=== PATIENT | male | born 1995 | race Caucasian/White ===

== ENCOUNTER 2020-08-16 17:23 | Emergency (ER) | payer SELFPAY ==
[2020-08-16] MEDS ORDERED: Pantoprazole 40 MG Tab.CR PO STA (18:07)
[2020-08-16] MEDS ORDERED: Ondansetron 4 MG Tab.DIS PO ONE (18:07)
--- NOTE | 2020-08-16 18:10 | EDM.PDOC ---
ED HPI GENERAL MEDICAL PROBLEM - General Chief Complaint: Gastrointestinal Problem Stated Complaint: VOMITTING BLOOD Time Seen by Provider: 08/16/20 18:01 Source of Information: Reports: Patient, Family, RN Notes Reviewed History Limitations: Reports: No Limitations - History of Present Illness INITIAL COMMENTS - FREE TEXT/NARRATIVE: 24-year-old gentleman presents emergency department a complaint of vomiting blood, he states he had 2 events over the last 2 days initially he had a large amount of blood in his emesis and then that was yesterday and then today he had another bout of emesis only with red streaks. He does feel nauseated he is the only 1 in the house that is sick he says he does have a known history of reflux disease does not take any medications. - Related Data Allergies Allergy/AdvReac Type Severity Reaction Status Date / Time No Known Allergies Allergy Verified 08/16/20 17:51 Home Meds: Home Meds NK [No Known Home Meds] 08/16/20 [History] Past Medical History Respiratory History: Reports: Asthma Gastrointestinal History: Reports: GERD Genitourinary History: Reports: Other (See Below) - Infectious Disease History Infectious Disease History: Reports: Chicken Pox - Past Surgical History Head Surgeries/Procedures: Reports: None Respiratory Surgical History: Reports: None GI Surgical History: Reports: None Male Surgical History: Reports: Circumcision Dermatological Surgical History: Reports: None Social & Family History - Tobacco Use Tobacco Use Status *Q: Never Tobacco User Second Hand Smoke Exposure: No - Caffeine Use Caffeine Use: Reports: None - Recreational Drug Use Recreational Drug Use: No ED ROS GENERAL - Review of Systems Review Of Systems: See Below Constitutional: Reports: No Symptoms HEENT: Reports: No Symptoms Respiratory: Reports: No Symptoms Cardiovascular: Reports: No Symptoms GI/Abdominal: Reports: Hematemesis, Nausea, Vomiting. Denies: Abdominal Pain ED EXAM, GI/ABD - Physical Exam Exam: See Below Exam Limited By: No Limitations General Appearance: Alert, WD/WN, No Apparent Distress Respiratory/Chest: No Respiratory Distress, Lungs Clear, Normal Breath Sounds, N o Accessory Muscle Use, Chest Non-Tender Cardiovascular: Regular Rate, Rhythm, No Murmur GI/Abdominal Exam: Soft, Non-Tender Course - Vital Signs Last Recorded V/S: Last Vital Signs Temp 98.7 F 08/16/20 17:51 Pulse 62 08/16/20 17:51 Resp 16 01/21/21 17:51 BP 117/70 08/16/20 17:51 Pulse Ox 96 08/16/20 17:51 - Orders/Labs/Meds Labs: Laboratory Tests 08/16/20 08/16/20 Range/Units 18:12 18:12 WBC 10.7 (4.5-11.0) K/uL RBC 5.64 (4.30-5.90) M/uL Hgb 16.3 H (12.0-15.0) g/dL Hct 47.5 (40.0-54.0) % MCV 84 (80-98) fL MCH 29 (27-31) pg MCHC 34 (32-36) % Plt Count 307 (150-400) K/uL Neut % (Auto) 68 H (36-66) % Lymph % (Auto) 20 L (24-44) % [place] % (Auto) 11 H (2-6) % Eos % (Auto) 1 L (2-4) % Baso % (Auto) 0 (0-1) % Sodium 139 L (140-148) mmol/L Potassium 4.3 (3.6-5.2) mmol/L Chloride 103 (100-108) mmol/L Carbon Dioxide 30 (21-32) mmol/L Anion Gap 10.3 (5.0-14.0) mmol/L BUN 12 (7-18) mg/dL Creatinine 1.0 (0.8-1.3) mg/dL Est Cr Clr Drug Dosing 105.58 mL/min Estimated GFR (MDRD) > 60 (>60) Glucose 97 (74-106) mg/dL Calcium 9.8 (8.5-10.1) mg/dL Meds: Medications Discontinued Medications Generic Name Dose Route Start Last Admin Trade Name Freq PRN Reason Stop Dose Admin Ondansetron HCl 4 mg 08/16/20 18:07 08/16/20 18:11 Zofran Odt PO 08/16/20 18:08 4 mg ONETIME ONE Administration Pantoprazole Sodium 40 mg 08/16/20 18:07 08/16/20 18:11 Protonix PO 08/16/20 18:08 40 mg NOW STA Administration Departure - Departure Time of Disposition: 19:00 Disposition: Home, Self-Care 01 Condition: Fair Clinical Impression: Hematemesis Qualifiers: Nausea presence: with nausea Qualified Code(s): K92.0 - Hematemesis - Discharge Information Instructions: Hematemesis Referrals: PCP,None [Primary Care Provider] - Forms: ED Department Discharge Additional Instructions: Please report for your EGD in the morning with Dr. Kiser, use Zofran as needed for nausea and vomiting symptoms, start your Protonix tomorrow Sepsis Event Note (ED) - Evaluation Sepsis Screening Result: No Definite Risk - Focused Exam Vital Signs: Vital Signs Temp Pulse Resp BP Pulse Ox 08/16/20 17:51 98.7 F 62 16 117/70 96 08/16/20 17:39 98.7 F 62 16 117/70 96 - Assessment/Plan Plan: Assessment Acuity = acute Site and laterality = hematoemesis Etiology = suspicious for underlying gastroesophageal disease Manifestations = none Location of injury = Home Lab values = CBC BMP unremarkable Plan Call discussed case with Dr. Kiser surgeon on-call at 1845 recommended EGD in the morning he is started on Protonix 40 mg once a day and provided Zofran 4 mg ODT 1 tab p.o. 3 times daily as needed total #5 for nausea vomiting symptoms This note was dictated using [employer] voice recognition software please call with any questions on syntax or grammar.
== END 2020-08-16 19:51 | disposition home or self-care (01) ==
LOC: JP.ED 17:23
DX: K92.0 Hematemesis (principal); J45.909 Unspecified asthma, uncomplicated
CPT/HCPCS: 36415; 80048; 85025; 99283; 99284; A9270

== ENCOUNTER 2020-08-17 07:21 | Day surgery (SDC) | payer MEDICAID, OTHER, SELFPAY ==
[2020-08-17] MEDS ORDERED: Dextrose 5%-Lactated Ringers 1,000 ML IV SCH (08:00)
[2020-08-17] MEDS ORDERED: Glycopyrrolate 0.2 MG/ML 2 ML SDV IVPUSH ONE (08:30)
[2020-08-17] MEDS ORDERED: Propofol 200 MG/20 ML SDV ONE (09:56)
[2020-08-17] MEDS ORDERED: fentaNYL 100 MCG/2 ML SDV ONE (09:57)
[2020-08-17] MEDS ORDERED: Midazolam 1 MG/ML 2 ML SDV ONE (09:57)
[2020-08-17] MEDS ORDERED: Pantoprazole 40 MG Vial IVPUSH ONE (10:25)
--- NOTE | 2020-09-01 09:25 | OR ---
DATE OF PROCEDURE: 08/17/2020 SURGEON: Yon Kiser MD PREOPERATIVE DIAGNOSES: Epigastric pain and history of hematemesis. POSTOPERATIVE DIAGNOSES: 1. Epigastric pain and history of hematemesis with focal proximal gastritis (likely bleeding source) and very mild antral gastritis. 2. 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 OPERATIVE PROCEDURE: Esophagogastroduodenoscopy with antral biopsies for CLOtest. ANESTHESIA: IV sedation. INDICATIONS FOR PROCEDURE: A 24-year-old male presenting with some epigastric pain and hematemesis. Seen in the emergency room and sent for followup endoscopy at this time. Potential risks of the procedure including bleeding and perforation were discussed, and the patient wishes to proceed. DETAILS OF PROCEDURE: The patient was taken to the operating room, placed in a left lateral decubitus position. IV sedation was administered, after which the upper GI endoscope was passed orally through the length of the esophagus into the stomach with retroflexion view of the fundus and thereafter through the pyloric channel into the proximal duodenum. Findings included normal hypopharynx, larynx, upper esophageal sphincter, and esophageal body. At the EG junction, no significant hiatal hernia or inflammation was noted. Within the stomach, there was a focal area of gastritis in the area which would be the distal cardia and body of the stomach. This had some old coffee-ground material over the surface along with some fibrinous exudate consistent with some recent bleeding. In the more distal stomach, there was very mild patchy antral gastritis. The patient did have well- defined ectopic pancreatic focus within the antrum, which was otherwise uncomplicated and was noncontributing to the patient's problems. Pyloric channel and visualized portions of the duodenum were unremarkable. At this point, biopsies were obtained from the antrum and sent for CLOtest for H pylori. Minimal bleeding from the biopsy sites was seen, and the procedure then concluded. The patient was started on Protonix and Zofran in the emergency room. He will be continuing on that, and he will be set up for followup with Raz Richards CNP at [facility] in roughly 2 weeks. Yon Kiser MD /[id number]
== END 2020-08-17 11:16 | disposition home or self-care (01) ==
LOC: JP.SDS 07:21
PROVIDERS: ATTEND Surgery
DX: K29.70 Gastritis, unspecified, without bleeding (principal); J45.909 Unspecified asthma, uncomplicated; Z01.812 Encounter for preprocedural laboratory examination; Z20.822 Contact with and (suspected) exposure to COVID-19
CPT/HCPCS: 43239; 87081; 87635; C9113; J2250; J2704; J3010; J3490; J7121; U0002

== ENCOUNTER 2020-11-28 09:13 | Emergency (ER) | payer SELFPAY ==
[2020-11-28] MEDS ORDERED: Sodium Chloride 0.9% 10 ML Syringe FLUSH PRN (09:42)
[2020-11-28] MEDS ORDERED: Ondansetron 4 MG/2 ML SDV IVPUSH ONE (09:43)
[2020-11-28] MEDS ORDERED: Lactated Ringers 1,000 ML IV SCH (09:45)
--- NOTE | 2020-11-28 09:54 | EDM.PDOC ---
ED HPI GENERAL MEDICAL PROBLEM - General Chief Complaint: Gastrointestinal Problem Stated Complaint: VOMITING PAST TWO DAYS Time Seen by Provider: 11/28/20 09:38 Source of Information: Reports: Patient, RN Notes Reviewed History Limitations: Reports: No Limitations - History of Present Illness INITIAL COMMENTS - FREE TEXT/NARRATIVE: 25-year-old male presents emergency department today complaint of nausea and vomiting states been ill for about 24 hours has not had any fever unable to keep anything down, denies any Covid contacts has not been vaccinated - Related Data Allergies Allergy/AdvReac Type Severity Reaction Status Date / Time bee venom protein (honey bee) Allergy Other Verified 11/28/20 09:32 Home Meds: Home Meds Ondansetron [Zofran ODT] 4 mg PO Q8H PRN 08/17/20 [History] Pantoprazole Sodium [Protonix] 40 mg PO DAILY 08/17/20 [History] Past Medical History HEENT History: Reports: Impaired Vision Respiratory History: Reports: Asthma Genitourinary History: Reports: Other (See Below) Other Genitourinary History: endoscopic kidney Musculoskeletal History: Reports: Back Pain, Chronic Neurological History: Reports: Vertigo - Infectious Disease History Infectious Disease History: Reports: Chicken Pox - Past Surgical History Head Surgeries/Procedures: Reports: None HEENT Surgical History: Reports: Myringotomy w Tube(s) Respiratory Surgical History: Reports: None GI Surgical History: Reports: None, EGD Male Surgical History: Reports: Circumcision Neurological Surgical History: Reports: Scoliosis Musculoskeletal Surgical History: Reports: None Dermatological Surgical History: Reports: None Social & Family History - Tobacco Use Tobacco Use Status *Q: Never Tobacco User Second Hand Smoke Exposure: No - Caffeine Use Caffeine Use: Reports: None - Recreational Drug Use Recreational Drug Use: Yes Drug Use in Last 12 Months: Yes Recreational Drug Type: Reports: Marijuana/Hashish Recreational Drug Use Frequency: Weekly ED ROS GENERAL - Review of Systems Review Of Systems: See Below Constitutional: Reports: No Symptoms HEENT: Reports: No Symptoms Respiratory: Reports: No Symptoms Cardiovascular: Reports: No Symptoms GI/Abdominal: Reports: Abdominal Pain (Cramping), Flatus, Nausea, Vomiting. Denies: Constipation, Diarrhea : Reports: No Symptoms ED EXAM, GI/ABD - Physical Exam Exam: See Below Exam Limited By: No Limitations General Appearance: Alert, WD/WN, No Apparent Distress Respiratory/Chest: No Respiratory Distress, Lungs Clear, Normal Breath Sounds, No Accessory Muscle Use, Chest Non-Tender Cardiovascular: Regular Rate, Rhythm, No Murmur GI/Abdominal Exam: Soft, Non-Tender Course - Vital Signs Last Recorded V/S: Last Vital Signs Temp 97.7 F 11/28/20 09:30 Pulse 69 11/28/20 11:23 Resp 18 11/28/20 09:30 BP 125/59 L 11/28/20 11:23 Pulse Ox 99 11/28/20 11:23 - Orders/Labs/Meds Orders: Active Orders 24 hr Category Date Time Status Peripheral IV Care [RC] . DIRECTED Care 11/28/20 09:42 Active Lactated Ringers [Ringers, Lactated] 1,000 ml Med 11/28/20 09:45 Active IV ASDIRECTED Sodium Chloride 0.9% [Saline Flush] Med 11/28/20 09:42 Active 10 ml FLUSH ASDIRECTED PRN Isolation [COMM] Stat Oth 11/28/20 09:43 Ordered Peripheral IV Insertion Adult [OM.PC] Urgent Oth 11/28/20 09:42 Ordered Medication Orders Lactated Ringer's (Ringers, Lactated) 1,000 mls @ 999 mls/hr IV ASDIRECTED MUNDO Last Admin: 11/28/20 09:59 Dose: 999 mls/hr Documented by: WILFRID Sodium Chloride (Sodium Chloride 0.9% 10 Ml Syringe) 10 ml FLUSH ASDIRECTED PRN PRN Reason: Keep Vein Open Last Admin: 11/28/20 10:00 Dose: 10 ml Documented by: WILFRID Labs: Laboratory Tests 11/28/20 11/28/20 11/28/20 Range/Units 09:42 09:42 09:42 WBC 9.9 (4.5-11.0) K/uL RBC 5.97 H (4.30-5.90) M/uL Hgb 17.1 H (12.0-15.0) g/dL Hct 49.4 (40.0-54.0) % MCV 83 (80-98) fL MCH 29 (27-31) pg MCHC 35 (32-36) % Plt Count 389 (150-400) K/uL Neut % (Auto) 77 H (36-66) % Lymph % (Auto) 16 L (24-44) % [place] % (Auto) 7 H (2-6) % Eos % (Auto) 1 L (2-4) % Baso % (Auto) 0 (0-1) % Sodium 142 (140-148) mmol/L Potassium 4.0 (3.6-5.2) mmol/L Chloride 101 (100-108) mmol/L Carbon Dioxide 25 (21-32) mmol/L Anion Gap 16.0 H (5.0-14.0) mmol/L BUN 14 (7-18) mg/dL Creatinine 0.9 (0.8-1.3) mg/dL Est Cr Clr Drug Dosing 112.24 mL/min Estimated GFR (MDRD) > 60 (>60) Glucose 101 (74-106) mg/dL Lactic Acid 0.9 (0.4-2.0) mmol/L Calcium 10.4 H (8.5-10.1) mg/dL Influenza Type A RNA (NEGATIVE) RSV RNA (INAAT) (NEGATIVE) Influenza Type B RNA (NEGATIVE) SARS-CoV-2 RNA (ROSA) (NEGATIVE) 11/28/20 Range/Units 09:43 WBC (4.5-11.0) K/uL RBC (4.30-5.90) M/uL Hgb (12.0-15.0) g/dL Hct (40.0-54.0) % MCV (80-98) fL MCH (27-31) pg MCHC (32-36) % Plt Count (150-400) K/uL Neut % (Auto) (36-66) % Lymph % (Auto) (24-44) % [place] % (Auto) (2-6) % Eos % (Auto) (2-4) % Baso % (Auto) (0-1) % Sodium (140-148) mmol/L Potassium (3.6-5.2) mmol/L Chloride (100-108) mmol/L Carbon Dioxide (21-32) mmol/L Anion Gap (5.0-14.0) mmol/L BUN (7-18) mg/dL Creatinine (0.8-1.3) mg/dL Est Cr Clr Drug Dosing mL/min Estimated GFR (MDRD) (>60) Glucose (74-106) mg/dL Lactic Acid (0.4-2.0) mmol/L Calcium (8.5-10.1) mg/dL Influenza Type A RNA Negative (NEGATIVE) RSV RNA (INAAT) Negative (NEGATIVE) Influenza Type B RNA Negative (NEGATIVE) SARS-CoV-2 RNA (ROSA) Negative (NEGATIVE) Meds: Medications Generic Name Dose Route Start Last Admin Trade Name Freq PRN Reason Stop Dose Admin Lactated Ringer's 1,000 mls @ 999 mls/hr 11/28/20 09:45 11/28/20 09:59 Ringers, Lactated IV 999 mls/hr ASDIRECTED MUNDO Administration Sodium Chloride 10 ml 11/28/20 09:42 11/28/20 10:00 Sodium Chloride 0.9% 10 Ml Syringe FLUSH 10 ml ASDIRECTED PRN Administration Keep Vein Open Discontinued Medications Generic Name Dose Route Start Last Admin Trade Name Freq PRN Reason Stop Dose Admin Lactated Ringer's 1,000 mls @ 999 mls/hr 11/28/20 11:08 11/28/20 11:14 Ringers, Lactated IV 11/28/20 12:08 999 mls/hr BOLUS ONE Administration Ondansetron HCl 4 mg 11/28/20 09:43 11/28/20 10:02 Ondansetron 4 Mg/2 Ml Sdv IVPUSH 11/28/20 09:44 4 mg ONETIME ONE Administration Prochlorperazine Edisylate 5 mg 11/28/20 11:08 11/28/20 11:13 Prochlorperazine 10 Mg/2 Ml Sdv IVPUSH 11/28/20 11:09 5 mg ONETIME ONE Administration Departure - Departure Time of Disposition: 12:27 Disposition: Home, Self-Care 01 Condition: Fair Clinical Impression: Gastroenteritis - Discharge Information Instructions: Viral Gastroenteritis, Adult, [id number] Referrals: PCP,None [Primary Care Provider] - Forms: ED Department Discharge Additional Instructions: Continue to use your Zofran at home as needed, please followup with your primary care provider in 3-5 days if not better, please call return to the emergency department with worsening of symptoms. Sepsis Event Note (ED) - Evaluation Sepsis Screening Result: No Definite Risk - Focused Exam Vital Signs: Vital Signs Temp Pulse Resp BP Pulse Ox 11/28/20 11:23 69 125/59 L 99 11/28/20 10:25 59 L 116/62 99 11/28/20 09:30 97.7 F 51 L 18 139/77 100 11/28/20 09:28 97.7 F 51 L 18 139/77 100 - My Orders Last 24 Hours: My Active Orders 11/28/20 09:42 Peripheral IV Care [RC] . DIRECTED Sodium Chloride 0.9% [Saline Flush] 10 ml FLUSH ASDIRECTED PRN Peripheral IV Insertion Adult [OM.PC] Urgent 11/28/20 09:43 Isolation [COMM] Stat 11/28/20 09:45 Lactated Ringers [Ringers, Lactated] 1,000 ml IV ASDIRECTED - Assessment/Plan Last 24 Hours: My Active Orders 11/28/20 09:42 Peripheral IV Care [RC] . DIRECTED Sodium Chloride 0.9% [Saline Flush] 10 ml FLUSH ASDIRECTED PRN Peripheral IV Insertion Adult [OM.PC] Urgent 11/28/20 09:43 Isolation [COMM] Stat 11/28/20 09:45 Lactated Ringers [Ringers, Lactated] 1,000 ml IV ASDIRECTED Plan: Assessment Acuity = acute Site and laterality = gastroenteritis Etiology = probably viral Manifestations = none Location of injury = Home Lab values = CBC BMP unremarkable Covid test was negative Plan After combination Zofran and Compazine with 2 L of fluid he was able to urinate and tolerate a meal in the emergency department and follow-up with primary care 3 to 5 days if not better he does have Zofran at home if needed This note was dictated using [employer] voice recognition software please call with any questions on syntax or grammar.
[2020-11-28 10:36] LABS: CORONAVIRUS COVID-19 NAA NEGATIVE (NEGATIVE)
[2020-11-28] MEDS ORDERED: Lactated Ringers 1,000 ML IV ONE (11:08)
[2020-11-28] MEDS ORDERED: Prochlorperazine 10 MG/2 ML SDV IVPUSH ONE (11:08)
== END 2020-11-28 13:17 | disposition home or self-care (01) ==
LOC: JP.ED 09:13
DX: K52.9 Noninfective gastroenteritis and colitis, unspecified (principal); J45.909 Unspecified asthma, uncomplicated; Z20.822 Contact with and (suspected) exposure to COVID-19; Z79.899 Other long term (current) drug therapy
CPT/HCPCS: 0241U; 36415; 80048; 83605; 85025; 96361; 96374; 96375; 99284; 99284-25; J0780; J2405; J7120

== ENCOUNTER 2021-03-13 11:18 | Emergency (ER) | payer SELFPAY ==
[2021-03-13] MEDS ORDERED: Prochlorperazine 10 MG/2 ML SDV IVPUSH ONE (11:58)
[2021-03-13] MEDS ORDERED: Ondansetron 4 MG/2 ML SDV IVPUSH ONE (11:58)
[2021-03-13] MEDS ORDERED: Sodium Chloride 0.9% 1,000 ML IV ONE (11:58)
--- NOTE | 2021-03-13 13:08 | EDM.PDOC ---
ED HPI GENERAL MEDICAL PROBLEM - General Chief Complaint: Gastrointestinal Problem Stated Complaint: VOMITING FOR LAST 12 HOURS Time Seen by Provider: 03/13/21 11:45 Source of Information: Reports: Patient History Limitations: Reports: No Limitations - History of Present Illness INITIAL COMMENTS - FREE TEXT/NARRATIVE: 25-year-old male who has had recurring nausea and vomiting syndromes several times over the past year, EGD showed some mild antral gastritis and he is on Protonix which he says he is taking. Last marijuana use was "4 days ago". He vomited once last night, took some Zofran and slept all night but when he woke up this morning at 5 AM he started vomiting again so came in to be seen. Is having abdominal cramping but no fever or chills. Onset: Sudden (Last evening) Associated Symptoms: Reports: Loss of Appetite, Malaise. Denies: Fever/Chills, Headaches, Shortness of Breath Abdomen Pain Score (Numeric/FACES): 6 - Related Data Allergies Allergy/AdvReac Type Severity Reaction Status Date / Time bee venom protein (honey bee) Allergy Other Verified 03/13/21 11:37 Home Meds: Home Meds Ondansetron [Zofran ODT] 4 mg PO Q8H PRN 08/17/20 [History] Pantoprazole Sodium [Protonix] 40 mg PO DAILY 08/17/20 [History] Past Medical History HEENT History: Reports: Impaired Vision Cardiovascular History: Reports: None Respiratory History: Reports: Asthma Gastrointestinal History: Reports: GERD, Other (See Below) Other Gastrointestinal History: "throwing up blood for last couple of days" Genitourinary History: Reports: Other (See Below) Other Genitourinary History: endoscopic kidney Musculoskeletal History: Reports: Back Pain, Chronic Neurological History: Reports: Vertigo Psychiatric History: Reports: None Endocrine/Metabolic History: Reports: None Hematologic History: Reports: None Immunologic History: Reports: None Oncologic (Cancer) History: Reports: None Dermatologic History: Reports: None - Infectious Disease History Infectious Disease History: Reports: Chicken Pox - Past Surgical History Head Surgeries/Procedures: Reports: None HEENT Surgical History: Reports: Myringotomy w Tube(s) Respiratory Surgical History: Reports: None GI Surgical History: Reports: None, EGD Male Surgical History: Reports: Circumcision Neurological Surgical History: Reports: Scoliosis Musculoskeletal Surgical History: Reports: None Dermatological Surgical History: Reports: None Social & Family History - Tobacco Use Tobacco Use Status *Q: Never Tobacco User - Caffeine Use Caffeine Use: Reports: None Caffeine Use Comment: pretty - Recreational Drug Use Recreational Drug Use: Yes Recreational Drug Type: Reports: Marijuana/Hashish ED ROS GENERAL - Review of Systems Review Of Systems: See Below Constitutional: Reports: Malaise. Denies: Fever, Chills HEENT: Denies: Throat Pain Respiratory: Denies: Shortness of Breath Cardiovascular: Denies: Chest Pain GI/Abdominal: Reports: Abdominal Pain, Nausea, Vomiting. Denies: Diarrhea Musculoskeletal: Reports: No Symptoms Skin: Reports: No Symptoms Neurological: Denies: Headache ED EXAM, GI/ABD - Physical Exam Exam: See Below Exam Limited By: No Limitations General Appearance: Alert, Anxious, Mild Distress, Other (Looks fairly uncomf ortable) Eyes: Bilateral: Normal Appearance (No jaundice) Head: Atraumatic Respiratory/Chest: No Respiratory Distress, Lungs Clear Cardiovascular: Regular Rate, Rhythm. No: Tachycardia GI/Abdominal Exam: Normal Bowel Sounds, Tender (Diffuse tender to palpation, no focal rebound or guarding) Neurological: Alert, Oriented Psychiatric: Flat Affect Course - Vital Signs Last Recorded V/S: Last Vital Signs Temp 97.1 F 03/13/21 11:40 Pulse 96 03/13/21 11:40 Resp 16 03/13/21 11:40 BP 130/71 03/13/21 11:40 Pulse Ox 97 03/13/21 11:40 - Orders/Labs/Meds Meds: Medications Discontinued Medications Generic Name Dose Route Start Last Admin Trade Name Jadon PRN Reason Stop Dose Admin Sodium Chloride 1,000 mls @ 999 mls/hr 03/13/21 11:58 03/13/21 13:12 Normal Saline IV 03/13/21 12:58 999 mls/hr ONETIME ONE Administration Ondansetron HCl 4 mg 03/13/21 11:58 03/13/21 13:12 Ondansetron 4 Mg/2 Ml Sdv IVPUSH 03/13/21 11:59 4 mg ONETIME ONE Administration Prochlorperazine Edisylate 5 mg 03/13/21 11:58 03/13/21 13:12 Prochlorperazine 10 Mg/2 Ml Sdv IVPUSH 03/13/21 11:59 5 mg ONETIME ONE Administration - Re-Assessments/Exams Free Text/Narrative Re-Assessment/Exam: 03/13/21 13:07 his work-up has been negative all 3 times he has been seen for this, an IV was started and he will be given IV Zofran and prochlorperazine as well as 1 L of fluid. 03/13/21 17:25 Patient responded well to the medications and fluid, had 1 more episode of emesis but then calmed down. He was discharged to continue Zofran as needed. Departure - Departure Time of Disposition: 16:56 Disposition: Home, Self-Care 01 Clinical Impression: Nausea & vomiting Qualifiers: Vomiting type: unspecified Vomiting Intractability: non-intractable Qualified Code(s): R11.2 - Nausea with vomiting, unspecified - Discharge Information Instructions: Nausea and Vomiting, Adult, [id number] Referrals: PCP,None [Primary Care Provider] - Forms: ED Department Discharge Care Plan Goals: Avoid marijuana use, stick with just fluids today and maintain hydration. Use Zofran as needed for nausea and vomiting and return in the next 24 to 48 hours if not improving satisfactorily. Sepsis Event Note (ED) - Evaluation Sepsis Screening Result: No Definite Risk - Focused Exam Vital Signs: Vital Signs Temp Pulse Resp BP Pulse Ox 03/13/21 11:40 97.1 F 96 16 130/71 97 03/13/21 11:29 97.1 F 96 16 130/71 97
== END 2021-03-13 16:56 | disposition home or self-care (01) ==
LOC: JP.ED 11:18
DX: R11.2 Nausea with vomiting, unspecified (principal); K21.9 Gastro-esophageal reflux disease without esophagitis; Z79.899 Other long term (current) drug therapy; Z91.030 Bee allergy status
CPT/HCPCS: 96374; 96375; 99283; J0780; J2405; J7030

== ENCOUNTER 2021-03-14 18:19 | Emergency (ER) | payer SELFPAY ==
[2021-03-14] MEDS ORDERED: Sodium Chloride 0.9% 10 ML Syringe FLUSH PRN (18:40)
--- NOTE | 2021-03-14 18:42 | EDM.PDOC ---
ED HPI GENERAL MEDICAL PROBLEM - General Chief Complaint: Gastrointestinal Problem Stated Complaint: VOMMITING FOR DAYS Time Seen by Provider: 03/14/21 18:41 Source of Information: Reports: Patient, Old Records History Limitations: Reports: No Limitations - History of Present Illness INITIAL COMMENTS - FREE TEXT/NARRATIVE: Nav is a 25-year-old male presenting to the ED for evaluation of recurring nausea and vomiting for the last 3 days. Patient was seen in the ED and evaluated yesterday by one of my partners who felt that this was consistent with cyclic vomiting. Patient does have a history of cannabis use and reports that he last smoked a week ago. He has been seen for similar episodes multiple times in the past. He denies any fever but has had chills. He has had no chest pain or shortness of breath. He does have epigastric discomfort and reports repeated episodes of emesis over 20 in the last 24 hours. He is not able to keep any fluids down. He has been unable to eat. He is complaining of some lightheadedness. Abdomen Pain Score (Numeric/FACES): 6 - Related Data Allergies Allergy/AdvReac Type Severity Reaction Status Date / Time bee venom protein (honey bee) Allergy Other Verified 03/13/21 11:37 Home Meds: Home Meds Ondansetron [Zofran ODT] 4 mg PO Q8H PRN 08/17/20 [History] Pantoprazole Sodium [Protonix] 40 mg PO DAILY 08/17/20 [History] Past Medical History HEENT History: Reports: Impaired Vision Cardiovascular History: Reports: None Respiratory History: Reports: Asthma Gastrointestinal History: Reports: GERD, Other (See Below) Other Gastrointestinal History: "throwing up blood for last couple of days" Genitourinary History: Reports: Other (See Below) Other Genitourinary History: endoscopic kidney Musculoskeletal History: Reports: Back Pain, Chronic Neurological History: Reports: Vertigo Psychiatric History: Reports: None Endocrine/Metabolic History: Reports: None Hematologic History: Reports: None Immunologic History: Reports: None Oncologic (Cancer) History: Reports: None Dermatologic History: Reports: None - Infectious Disease History Infectious Disease History: Reports: Chicken Pox - Past Surgical History Head Surgeries/Procedures: Reports: None HEENT Surgical History: Reports: Myringotomy w Tube(s) Respiratory Surgical History: Reports: None GI Surgical History: Reports: None, EGD Male Surgical History: Reports: Circumcision Neurological Surgical History: Reports: Scoliosis Musculoskeletal Surgical History: Reports: None Dermatological Surgical History: Reports: None Social & Family History - Caffeine Use Caffeine Use: Reports: None Caffeine Use Comment: pretty PATINO GENERAL - Review of Systems Review Of Systems: See Below Constitutional: Reports: Weakness, Decreased Appetite HEENT: Reports: No Symptoms Respiratory: Reports: No Symptoms Cardiovascular: Reports: No Symptoms GI/Abdominal: Reports: Abdominal Pain (Epigastric), Decreased Appetite, Nausea (Able to keep any fluids down), Vomiting : Reports: No Symptoms Musculoskeletal: Reports: No Symptoms Skin: Reports: No Symptoms Neurological: Reports: No Symptoms Psychiatric: Reports: Anxiety Hematologic/Lymphatic: Reports: No Symptoms Immunologic: Reports: No Symptoms ED EXAM, GI/ABD - Physical Exam Exam: See Below Exam Limited By: No Limitations General Appearance: Alert, Anxious, Mild Distress Eyes: Bilateral: EOMI Nose: Normal Inspection, Normal Mucosa Throat/Mouth: Normal Inspection, Other (Mildly dry mucous membranes) Head: Atraumatic, Normocephalic Neck: Normal Inspection, Supple, Non-Tender, Full Range of Motion Respiratory/Chest: No Respiratory Distress, Lungs Clear, Normal Breath Sounds Cardiovascular: Normal Peripheral Pulses, Regular Rate, Rhythm, No Murmur. No: Tachycardia GI/Abdominal Exam: Normal Bowel Sounds, Soft, Tender (Epigastric tenderness). No: Guarding, Rigid, Rebound Extremities: Normal Inspection, Normal Range of Motion, No Pedal Edema, Normal Capillary Refill Neurological: Alert, Oriented, Normal Cognition, No Motor/Sensory Deficits Psychiatric: Normal Affect Skin Exam: Warm, Dry, Intact, Normal Color Lymphatic: No Adenopathy Course - Vital Signs Last Recorded V/S: Last Vital Signs Temp 36.6 C 03/14/21 18:43 Pulse 73 03/14/21 18:43 Resp 16 03/14/21 18:43 BP 136/78 03/14/21 18:43 Pulse Ox 97 03/14/21 18:43 - Orders/Labs/Meds Orders: Active Orders 24 hr Category Date Time Status DRUG SCREEN, URINE [URCHEM] Stat Lab 03/14/21 18:25 Ordered UA W/MICROSCOPIC [URIN] Stat Lab 03/14/21 18:25 Ordered Sodium Chloride 0.9% [Normal Saline] 1,000 ml Med 03/14/21 18:45 Active IV ASDIRECTED Sodium Chloride 0.9% [Saline Flush] Med 03/14/21 18:40 Active 10 ml FLUSH ASDIRECTED PRN Saline Lock Insert [OM.PC] Routine Oth 03/14/21 18:40 Ordered Medication Orders Sodium Chloride (Normal Saline) 1,000 mls @ 999 mls/hr IV ASDIRECTED MUNDO Last Admin: 03/14/21 18:56 Dose: 999 mls/hr Documented by: MARIUM Sodium Chloride (Sodium Chloride 0.9% 10 Ml Syringe) 10 ml FLUSH ASDIRECTED PRN PRN Reason: Keep Vein Open Last Admin: 03/14/21 18:58 Dose: 10 ml Documented by: MARIUM Labs: Laboratory Tests 03/14/21 03/14/21 Range/Units 18:45 18:45 WBC 24.6 H (4.5-11.0) K/uL RBC 5.98 H (4.30-5.90) M/uL Hgb 17.2 H (12.0-15.0) g/dL Hct 48.7 (40.0-54.0) % MCV 81 (80-98) fL MCH 29 (27-31) pg MCHC 35 (32-36) % Plt Count 361 (150-400) K/uL Neut % (Auto) 87.5 H (36-66) % Lymph % (Auto) 6.4 L (24-44) % [place] % (Auto) 6.1 H (2-6) % Eos % (Auto) 0.0 L (2-4) % Baso % (Auto) 0.0 (0-1) % Sodium 140 (140-148) mmol/L Potassium 3.4 L (3.6-5.2) mmol/L Chloride 96 L (100-108) mmol/L Carbon Dioxide 28 (21-32) mmol/L Anion Gap 19.4 H (5.0-14.0) mmol/L BUN 18 (7-18) mg/dL Creatinine 1.0 (0.8-1.3) mg/dL Est Cr Clr Drug Dosing 101.02 mL/min Estimated GFR (MDRD) > 60 (>60) Glucose 119 H (74-106) mg/dL Calcium 10.5 H (8.5-10.1) mg/dL Total Bilirubin 1.9 H (0.2-1.0) mg/dL AST 31 (15-37) U/L ALT 48 (12-78) U/L Alkaline Phosphatase 82 (46-116) U/L Total Protein 8.3 H (6.4-8.2) g/dL Albumin 4.9 (3.4-5.0) g/dL Globulin 3.4 (2.3-3.5) g/dL Albumin/Globulin Ratio 1.4 (1.2-2.2) Meds: Medications Generic Name Dose Route Start Last Admin Trade Name Freq PRN Reason Stop Dose Admin Sodium Chloride 1,000 mls @ 999 mls/hr 03/14/21 18:45 03/14/21 18:56 Normal Saline IV 999 mls/hr ASDIRECTED MUNDO Administration Sodium Chloride 10 ml 03/14/21 18:40 03/14/21 18:58 Sodium Chloride 0.9% 10 Ml Syringe FLUSH 10 ml ASDIRECTED PRN Administration Keep Vein Open Discontinued Medications Generic Name Dose Route Start Last Admin Trade Name Freq PRN Reason Stop Dose Admin Droperidol 1.25 mg 03/14/21 18:40 03/14/21 18:56 Droperidol 5 Mg/2 Ml Sdv IVPUSH 03/14/21 18:41 1.25 mg ONETIME ONE Administration - Re-Assessments/Exams Free Text/Narrative Re-Assessment/Exam: 03/14/21 20:09 [facility] returns with again another round of vomiting. He thinks he may have had some streaks of blood earlier today but has been mostly bile this afternoon. The patient was seen and evaluated by my colleague yesterday and has a history for cyclic vomiting secondary to cannabis use. He last smoked cannabis about a week ago according to him although and Dr. Heath's note it was only 4 days ago that he was noted to have smoked. The patient was given a liter of IV normal saline and droperidol 1.25 mg IV and has had improvement in his nausea and vomiting. I did discuss other measures to control cyclic vomiting including the use of Aspercreme or capsaicin rubbed on the abdomen and taking hot showers at onset of symptoms. I did provide him with another prescription for Zofran 4 mg ODT 1 to 2 tablets every 8 hours as needed to control of vomiting with 15 tablets dispensed. I encouraged the patient to discontinue the use of marijuana as it does not seem to be beneficial for him especially activating the cyclic vomiting syndrome. At this time patient is suitable for discharge all questions were answered. Departure - Departure Time of Disposition: 20:02 Disposition: Home, Self-Care 01 Clinical Impression: Cyclic vomiting syndrome, Dehydration - Discharge Information Instructions: Dehydration, Adult, [id number], Nausea and Vomiting, Adult, [id number] Referrals: PCP,None [Primary Care Provider] - Forms: ED Department Discharge Care Plan Goals: One of the [id number] medications that has been shown to be beneficial with cyclic vomiting is putting capsaicin on the abdomen. Capsaicin is availabl e as a topical ointment available at most stores usually in the general area of [facility]. The other thing that has been shown to be effective is taking a hot shower which causes the release of endorphins combating the ill effects of the cyclic vomiting. In addition, I will give you a prescription for a stronger version of the Zofran that she may take at home. Sepsis Event Note (ED) - Focused Exam Vital Signs: Vital Signs Temp Pulse Resp BP Pulse Ox 03/14/21 18:43 36.6 C 73 16 136/78 97 - Problem List & Annotations (1) Cyclic vomiting syndrome Status: Acute Priority: Medium Current Visit: Yes - Problem List Review Problem List Initiated/Reviewed/Updated: Yes - My Orders Last 24 Hours: My Active Orders 03/14/21 18:25 DRUG SCREEN, URINE [URCHEM] Stat UA W/MICROSCOPIC [URIN] Stat 03/14/21 18:40 Sodium Chloride 0.9% [Saline Flush] 10 ml FLUSH ASDIRECTED PRN Saline Lock Insert [OM.PC] Routine 03/14/21 18:45 Sodium Chloride 0.9% [Normal Saline] 1,000 ml IV ASDIRECTED - Assessment/Plan Last 24 Hours: My Active Orders 03/14/21 18:25 DRUG SCREEN, URINE [URCHEM] Stat UA W/MICROSCOPIC [URIN] Stat 03/14/21 18:40 Sodium Chloride 0.9% [Saline Flush] 10 ml FLUSH ASDIRECTED PRN Saline Lock Insert [OM.PC] Routine 03/14/21 18:45 Sodium Chloride 0.9% [Normal Saline] 1,000 ml IV ASDIRECTED
[2021-03-14] MEDS ORDERED: Sodium Chloride 0.9% 1,000 ML IV SCH (18:45)
== END 2021-03-14 20:26 | disposition home or self-care (01) ==
LOC: JP.ED 18:19
DX: R11.15 Cyclical vomiting syndrome unrelated to migraine (principal); E86.0 Dehydration; R11.2 Nausea with vomiting, unspecified; R10.13 Epigastric pain; Z91.030 Bee allergy status
CPT/HCPCS: 36415; 80053; 85025; 96374; 99284; J1790; J7030

== ENCOUNTER 2021-12-03 10:40 | Emergency (ER) | payer OTHER ==
[2021-12-03] MEDS ORDERED: Iopamidol 612 MG/ML 100 ML Bottle IV PRN (11:07)
[2021-12-03] MEDS ORDERED: HYDROmorphone 0.5 MG/0.5 ML Syringe IVPUSH ONE (11:11)
[2021-12-03] MEDS ORDERED: Sodium Chloride 0.9% 50 ML IV SCH (11:15)
[2021-12-03] MEDS ORDERED: Ketorolac 30 MG/ML SDV IVPUSH ONE (14:12)
== END 2021-12-03 14:37 | disposition home or self-care (01) ==
LOC: JP.ED 10:40
DX: S22.41XA Multiple fractures of ribs, right side, initial encounter for closed fracture (principal); S80.11XA Contusion of right lower leg, initial encounter; K21.9 Gastro-esophageal reflux disease without esophagitis; Z91.030 Bee allergy status; Z79.899 Other long term (current) drug therapy; V86.59XA Driver of other special all-terrain or other off-road motor vehicle injured in nontraffic accident, initial encounter; Y92.410 Unspecified street and highway as the place of occurrence of the external cause
CPT/HCPCS: 36415; 71260; 74177; 80053; 85025; 96374; 96375; 99284; 99284-25; J1170; J1885; J3490; Q9967